=== PATIENT | female | born 1955 | race Caucasian/White ===

== ENCOUNTER 2017-06-15 09:00 | Day surgery (SDC) | payer BC ==
--- NOTE | 2017-06-13 15:59 | HP ---
DATE OF SURGERY: 06/15/2017 HISTORY OF PRESENT ILLNESS: The patient is a 62 year-old with problems with upper esophagus, swallowing, having problems with soft foods at times. She is in need of upper endoscopy to evaluate for esophageal narrowing or stricture or other etiology. PAST MEDICAL HISTORY: Includes some hypercholesterolemia. PAST SURGICAL HISTORY: Prior history of EGD in the past and dilatation. She had been scheduled previously for EGD and dilatation in the past. Last procedure not quite two years ago. Cholecystectomy, hysterectomy, EGD with dilatation in the past. MEDICATIONS: Crestor, Trilipix, Ambien. ALLERGIES: SULFA. FAMILY HISTORY: Breast cancer, hypertension, skin cancer. SOCIAL HISTORY: No smoking or alcohol abuse. REVIEW OF SYSTEMS: She had some migraines. She has hypertriglyceridemia. She had some hypothyroidism in the past as well as hypercholesterolemia. Twelve systems reviewed per admission assessment. No chest pain or palpitations other systems negative or noncontributory as above and per preadmission questionnaire. PHYSICAL EXAMINATION: GENERAL: No acute distress. HEENT: Sclerae nonicteric. NECK: No JVD. CHEST: Equal excursion, nonlabored breathing. CVS: Regular rate and rhythm. ABDOMEN: Soft. No peritoneal signs. EXTREMITIES: No significant edema. NEURO: Alert, oriented, moving extremities symmetrically. No gross motor deficits noted. IMPRESSION: Dysphagia upper esophagus. Question whether she has esophageal narrowing or stricture. I feel she would benefit from upper endoscopy possible biopsy, possible dilatation pending operative findings. Risks and benefits explained in detail including but not limited to bleeding or infection, small risk of bowel injury or perforation possibly requiring open procedure, small risk of missed or nondiagnosis or incomplete exam possibly requiring barium swallow or other studies or procedures, general risk of anesthesia or sedation but not limited to. She understands all the above but not limited also possibility of need of repeat dilatation down the road. She understands and agrees with the planned procedure, will proceed with EGD possible biopsy, possible dilatation as an outpatient.
[~2017-06-15 09:00] MED LIST: Lactated Ringers 1,000 ML IV ONE; Lactated Ringers 1,000 ML IV SCH
[2017-06-15] MEDS ORDERED: DIPRIVAN 200 MG/20 ML IV ONE (09:01)
[2017-06-15] MEDS ORDERED: Ketamine HCl 50 MG/ML IV ONE (09:01)
[2017-06-15] MEDS ORDERED: APRESOLINE 20 MG/ML INJ IV ONE (09:01)
[2017-06-15 09:41] VITALS: O2SAT 95
[2017-06-15 11:39] VITALS: PULSE 88
[2017-06-15 12:00] VITALS: BP 131/61
--- NOTE | 2017-06-15 13:46 | OP ---
SURGERY DATE/TIME: 06/15/2017 1039 PREOPERATIVE DIAGNOSES: 1) Short segment distal gastroesophagitis. 2) Mild gastritis. 3) Distal esophageal narrowing, secondary Schatzki's ring. 4) Proximal esophageal narrowing or stricture. POSTOPERATIVE DIAGNOSES: 1) Short segment distal gastroesophagitis. 2) Mild gastritis. 3) Distal esophageal narrowing, secondary Schatzki's ring. 4) Proximal esophageal narrowing or stricture. PROCEDURES: 1) EGD with cold biopsy of the antrum to evaluate for Helicobacter pylori. 2) Esophageal balloon dilatation distal esophagus size 20 balloon. 3) Esophageal balloon dilatation proximal esophagus size 20 balloon. SURGEON: Dr. Kel Nava. ANESTHESIA: MAC. ESTIMATED BLOOD LOSS: Minimal. INDICATIONS: As noted above. Risks and benefits explained in detail and not limited to and consent obtained. DESCRIPTION OF PROCEDURE AND FINDINGS: The patient is taken to the operating room. MAC anesthesia was introduced. After official time out and no disagreement with planned procedure, a bite block positioned. Video gastroscope easily passed down the esophagus. Although it was narrowed in the proximal esophagus the scope was able to be passed down through this area. Because she was having symptoms in this area it was felt that she would benefit from balloon dilatation as this is where she is having most of her symptoms in upper esophageal area. There are no signs of obvious mass or mucosal lesions. The scope passed back down distal esophagus. Short segment of distal gastroesophagitis in distal esophagus. There was a Schatzki's ring that was creating some narrowing. The scope was able to be passed through this. It was felt this needed balloon dilatation at the end of the procedure as well. Cold biopsies had been taken of the distal esophagus to evaluate for reflux esophagitis versus early Schwab's. Hemostasis noted. The scope is then passed down through patent pylorus to the junction of the second and third portion of the duodenum. On withdrawal of the scope duodenum and duodenal bulb grossly unremarkable. Back in the stomach she had some mild gastritis. No evidence of ulcers or mucosal lesions. On retroflex there was no large visible hiatal hernia that could be visualized endoscopically. A cold biopsy taken of the antrum to evaluate for Helicobacter pylori. Good hemostasis noted. The scope pulled back. Again cold biopsy site at the distal esophagus had good hemostasis. It was felt then balloon dilatation. The scope passed back down in the stomach. Balloon dilators carefully inserted under direct vision of the camera pulled back to distal esophagus and gradually inflated. The Schatzki's ring was then dilated starting at size 18 then size 19 for 30 to 40 seconds each and then final stage about 1 1/2 minutes size 20 dilator. The balloon was then deflated and pulled up to the proximal esophageal narrowing or stricture area where she was having most of her symptoms. The balloon was then carefully inflated to size 18 for about 40 seconds, size 19 for 40 - 45 seconds and then finally size 20 balloon dilator for about two minutes. The balloon was then released and withdrawn. The scope was much more easily passed through this proximal esophageal narrowed area as well as the distal esophageal narrowed area as well as the distal esophageal narrowing. The scope was straightened slowly and carefully withdrawn. Adequate hemostasis noted. The scope is withdrawn. The patient tolerated the procedure well. There were no immediate complications. I will see if there is family to discuss the findings with out in the waiting area.
== END 2017-06-15 12:14 | disposition home or self-care (01) ==
LOC: SDC 09:00
PROVIDERS: ATTEND Surgery
PROC: 0DB78ZX Excision of Stomach, Pylorus, Via Natural or Artificial Opening Endoscopic, Diagnostic (ICD-10-PCS; principal; 2017-06-15)
PROC: 0D738ZZ Dilation of Lower Esophagus, Via Natural or Artificial Opening Endoscopic (ICD-10-PCS; 2017-06-15)
PROC: 0D718ZZ Dilation of Upper Esophagus, Via Natural or Artificial Opening Endoscopic (ICD-10-PCS; 2017-06-15)
DX: K20.9 Esophagitis, unspecified (principal); K29.70 Gastritis, unspecified, without bleeding; K22.2 Esophageal obstruction
CPT/HCPCS: 00740; 36415; 87081; 88305; C1726; J0360; J2704

== ENCOUNTER 2019-01-29 11:10 | Emergency (ER) | payer MEDICARE ==
[2019-01-29] MEDS ORDERED: Adacel Vial IM ONE ×2 (11:18→11:22)
[2019-01-29] MEDS ORDERED: BACIGUENT PACKET TP ONE (11:21)
[2019-01-29] MEDS ORDERED: BACIGUENT PACKET ONE (11:22)
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
[2019-01-29 11:50] VITALS: BP 169/92; PULSE 85; O2SAT 95
== END 2019-01-29 11:50 | disposition home or self-care (01) ==
LOC: ED 11:10
DX: S50.12XA Contusion of left forearm, initial encounter (principal); V48.5XXA Car driver injured in noncollision transport accident in traffic accident, initial encounter; Z79.899 Other long term (current) drug therapy
CPT/HCPCS: 90471; 90715; 99284; A9270-GY